=== PATIENT | male | born 1955 | race Hispanic/Latino ===

== ENCOUNTER 2023-11-26 23:29 | Observation (INO) | payer OTHER, MEDICARE ==
[~2023-11-26] VITALS: Ht 175.3 cm; Wt 100.7 kg
[2023-11-26 23:51] LABS: BASOPHILS # (AUTO) 0.06 K/uL (0.00-0.20); BASOPHILS % (AUTO) 0.7 % (0.0-5.0); EOSINOPHILS # (AUTO) 0.17 K/uL (0.00-0.70); EOSINOPHILS % (AUTO) 2.1 % (0.0-8.0); IMMATURE GRANULOCYTE ABSOLUTE 0.03 K/uL (0-1); LYMPHOCYTES # (AUTO) 1.6 K/uL (1.0-4.8); MEAN CORPUSCULAR HEMOGLOBIN 30.3 pg (27.0-33.0); MEAN CORPUSCULAR HGB CONC 34.3 g/dL (32.0-36.0); MEAN CORPUSCULAR VOLUME 88.3 fL (79-99); MONOCYTES # (AUTO) 0.7 K/uL (0.1-1.0); MONOCYTES % (AUTO) 9.2 % (3.0-13.0); NEUTROPHILS # (AUTO) 5.4 K/uL (1.8-7.7); NEUTROPHILS % (AUTO) 67.6 % (40.0-77.0); PLATELET COUNT (AUTO) 213 K/uL (130-400); RED BLOOD CELL COUNT(AUTO) 4.19 MIL/uL (4.50-6.20); RED CELL DISTRIBUTION WIDTH 13.1 % (11.0-15.5)
[2023-11-27 00:29] LABS: CREATININE 1.5 mg/dL (0.5-1.5); POTASSIUM 4.3 mmol/L (3.5-5.1)
[2023-11-27] MEDS ORDERED: NITROGLYCERIN 0.4 MG SL TAB SL PRN ×2 (00:30→03:00)
[2023-11-27] MEDS ORDERED: ENOXAPARIN SODIUM 40 MG/0.4 ML SYRINGE SQ ONE (00:30)
[2023-11-27 00:42] LABS: ALBUMIN 3.4 g/dL (3.5-5.0); BILIRUBIN,TOTAL 0.4 mg/dL (0.2-1.0); MAGNESIUM 1.8 mg/dL (1.80-2.40); THYROID STIMULATING HORMONE 7.08 uIU/mL (0.36-3.74); TOTAL PROTEIN, SERUM 7.5 g/dL (6.0-8.3)
[2023-11-27 01:42] LABS: APPEARANCE,URINE CLEAR (CLEAR); BILIRUBIN,URINE NEGATIVE (NEGATIVE); COLOR,URINE LIGHT-YELLOW (YELLOW); GLUCOSE, URINE (UA) NEGATIVE (NEGATIVE); KETONES,URINE NEGATIVE (NEGATIVE); LEUKOCYTE ESTERASE ,URINE NEGATIVE Leu/uL (NEGATIVE); NITRATE,URINE NEGATIVE (NEGATIVE); PH,URINE 5.5 (5.0-8.0); PROTEIN,URINE NEGATIVE (NEGATIVE); UROBILINOGEN,URINE 0.2 mg/dL (0.2-1.0)
[2023-11-27 01:44] LABS: ADD UA MICROSCOPIC YES
[2023-11-27 01:48] LABS: MUCUS,URINE RARE LPF (None Seen); OTHER CASTS, URINE 1 /LPF (None Seen); SQUAMOUS EPITHELIAL CELL,UR RARE /HPF (0-2); WBC,URINE 0-1 /HPF (0-1)
[2023-11-27] MEDS ORDERED: ACETAMINOPHEN 325 MG TAB PO PRN (03:00)
[2023-11-27] MEDS ORDERED: CLONIDINE HCL 0.1 MG TABLET PO PRN (03:00)
[2023-11-27] MEDS ORDERED: TEMAZEPAM 15 MG CAPSULE PO PRN (03:00)
[2023-11-27] MEDS ORDERED: LACTATED RINGERS 1000ML 1,000 ML IV SCH (03:00)
[2023-11-27] MEDS ORDERED: HYDRALAZINE 20MG/ML VIAL IV PRN (03:00)
[2023-11-27] MEDS ORDERED: MORPHINE 2 MG SYG IVP PRN (03:00)
[2023-11-27] MEDS ORDERED: ONDANSETRON 4MG INJ IVP PRN (03:00)
[2023-11-27] MEDS ORDERED: ACETAMINOPHEN 650 MG SUPPOSITORY RC PRN (03:00)
[2023-11-27] MEDS ORDERED: LACTULOSE 20 GM/30 ML UDCUP PO PRN (03:00)
[2023-11-27] MEDS ORDERED: LABETALOL 20MG SYG IV PRN (03:00)
[2023-11-27 04:18] VITALS: O2SAT 99
[2023-11-27] MEDS ORDERED: ATOR40TA69 PO (04:28)
[2023-11-27] MEDS ORDERED: LORA10TA7 PO (04:33)
[2023-11-27] MEDS ORDERED: APIX5TAB PO (04:33)
[2023-11-27] MEDS ORDERED: SPIR25TA6 PO (04:33)
[2023-11-27] MEDS ORDERED: PANT40TA PO (04:33)
[2023-11-27] MEDS ORDERED: FURO40TA5 PO (04:33)
[2023-11-27] MEDS ORDERED: SACU1TAB7 PO (04:33)
[2023-11-27] MEDS ORDERED: LEVE-43 PO (04:33)
[2023-11-27] MEDS ORDERED: TRAM50TA4 PO (04:33)
[2023-11-27] MEDS ORDERED: CARV6.25 PO (04:33)
[2023-11-27 04:45] VITALS: BP 121/62; PULSE 70; RESP 20
[2023-11-27 05:49] LABS: HEMATOCRIT 36.6 % (42-54); MEAN CORPUSCULAR HEMOGLOBIN 29.8 pg (27.0-33.0); MEAN CORPUSCULAR HGB CONC 33.3 g/dL (32.0-36.0); MEAN CORPUSCULAR VOLUME 89.3 fL (79-99); RED BLOOD CELL COUNT(AUTO) 4.1 MIL/uL (4.50-6.20); RED CELL DISTRIBUTION WIDTH 12.6 % (11.0-15.5); WHITE BLOOD COUNT (AUTO) 7.6 K/uL (4.8-10.8)
[2023-11-27 06:01] LABS: CREATININE 1.3 mg/dL (0.5-1.5); POTASSIUM 3.5 mmol/L (3.5-5.1)
[2023-11-27 06:08] LABS: MAGNESIUM 1.9 mg/dL (1.80-2.40); PHOSPHORUS 3.8 mg/dL (2.5-4.9)
[2023-11-27 08:00] VITALS: BP 126/80; PULSE 71; RESP 19
[2023-11-27] MEDS ORDERED: APIXABAN 5 MG TABLET PO SCH (09:00)
[2023-11-27] MEDS ORDERED: ENOXAPARIN SODIUM 30 MG/0.3 ML SQ SCH (09:00)
[2023-11-27] MEDS ORDERED: SPIRONOLACTONE 25 MG TAB PO SCH (09:00)
[2023-11-27] MEDS ORDERED: LEVETIRACETAM 500 MG TABLET PO SCH (09:00)
[2023-11-27] MEDS ORDERED: FUROSEMIDE 40 MG TABLET PO SCH (09:00)
[2023-11-27] MEDS ORDERED: PANTOPRAZOLE 40 MG TAB DR PO SCH ×2 (09:00)
[2023-11-27] MEDS ORDERED: CARVEDILOL 6.25 MG TABLET PO SCH (09:00)
[2023-11-27] MEDS ORDERED: ASPIRIN 81MG CHEW TAB PO SCH (09:00)
[2023-11-27 12:00] VITALS: BP 119/73; PULSE 69; RESP 18
[2023-11-27] MEDS ORDERED: POTASSIUM CHLORIDE 10% ELIXIR 20 MEQ/15 ML UDCUP PO PRN (13:00)
[2023-11-27] MEDS ORDERED: KCL 20 MEQ ERTAB PO PRN (13:00)
[2023-11-27] MEDS ORDERED: POTASSIUM CHLORIDE 20MEQ/100ML 100 ML IV PRN (13:00)
[2023-11-27 16:00] VITALS: BP 102/70; PULSE 73; RESP 18
[2023-11-27] MEDS ORDERED: ATORVASTATIN 40 MG TABLET PO SCH (21:00)
[2023-11-27] MEDS ORDERED: SIMVASTATIN 20 MG TABLET PO SCH (21:00)
[2023-11-27] MEDS ORDERED: SACUBITRIL/VALSARTAN 1 EACH TABLET PO SCH (21:00)
== END 2023-11-27 19:30 ==
LOC: EDH 23:29 → EDHIP 11-27 02:56 → 4AH 11-27 04:40
PROVIDERS: ADMIT Internal Medicine; ATTEND Internal Medicine
DX: I48.91 Unspecified atrial fibrillation (principal); I11.0 Hypertensive heart disease with heart failure; I50.20 Unspecified systolic (congestive) heart failure; E11.65 Type 2 diabetes mellitus with hyperglycemia; E78.5 Hyperlipidemia, unspecified; E87.8 Other disorders of electrolyte and fluid balance, not elsewhere classified; I63.9 Cerebral infarction, unspecified; E66.01 Morbid (severe) obesity due to excess calories; I20.0 Unstable angina; G40.909 Epilepsy, unspecified, not intractable, without status epilepticus; Z88.0 Allergy status to penicillin; Z68.32 Body mass index [BMI] 32.0-32.9, adult; Z79.01 Long term (current) use of anticoagulants; Z95.0 Presence of cardiac pacemaker
CPT/HCPCS: 84484 ×4; 85025; 71045; 93005 ×2; 96374; 96372; 96361; 99285; 84443; 82550 ×2; 83735 ×2; 84100; 80061; 80053; 83880; 85027; 85378; 82948 ×2; 81001; 36415; 93306; 93356; G0378 ×16; J7120; J2270; J1650; 80048